=== PATIENT | female | born 1940 | race Caucasian/White ===

== ENCOUNTER → 2018-08-11 | Outpatient (CLI) | payer MEDICARE, OTHER ==
--- NOTE | 2018-08-11 09:49 | CT ---
EXAMINATION TYPE: CT brain wo con DATE OF EXAM: 08/11/2018 COMPARISON: None HISTORY: 78-year-old female Stroke TECHNIQUE: Examination was done in axial plane without intravenous contrast. Coronal and sagittal r econstructions performed. CT DLP: 1254 mGycm Automated exposure control for dose reduction was used. FINDINGS: There is a large area of subacute infarct involving the posterior right lobe, right occipital lobe, a nd nearly the entire right temporal lobe. Associated sulcal effacement and 5 mm of leftward midline s hift. No herniation is identified. There is mass effect with effacement of the atrium and occipital horn of the right lateral ventricle. Curvilinear areas of acute to subacute hemorrhagic transformation are scattered throughout the area o f infarct. No sizable extra-axial fluid collection. Rightward nasal septal deviation. Trace scattered mucosal thickening ethmoid air cells. Orbits and gl obes are intact. Normal variation with hyperostosis frontalis interna. IMPRESSION: 1. Large area of subacute infarct posterior right parietal, right occipital, and right temporal lobes with mass effect onto the posterior aspect of the right lateral ventricle and 5 mm of leftward midli ne shift. No herniation seen. 2. Small scattered curvilinear areas of hemorrhagic transformation throughout the region of infarct. The technologist is making arrangements to have the report faxed and physician's office notified of t he report by phone call.
== END | disposition home or self-care (01) ==
LOC: RADCTMAIN 07:45
PROVIDERS: ATTEND Specialist
DX: G93.89 Other specified disorders of brain (principal); I61.9 Nontraumatic intracerebral hemorrhage, unspecified; I63.9 Cerebral infarction, unspecified
CPT/HCPCS: 70450